=== PATIENT | female | born 1985 | race Caucasian/White ===

== ENCOUNTER 2022-01-21 23:42 | Emergency (ER) | payer MEDICAID ==
[~2022-01-21] VITALS: Ht 160 cm; Wt 70.0 kg
[2022-01-22] MEDS ORDERED: NITR-87 MT (01:00)
[2022-01-22] MEDS ORDERED: PYR200 MT (01:00)
[2022-01-22 01:46] LABS: CLARITY URINE CLEAR (CLEAR); COLOR URINE DARK YELLOW (YELLOW); KETONES URINE 1+ (NEGATIVE); LEUKOCYTE ESTERASE URINE NEGATIVE (NEGATIVE); NITRITE URINE NEGATIVE (NEGATIVE); OCCULT BLOOD URINE NEGATIVE (NEGATIVE); PH URINE 5.5 (4.5-8.0); PROTEIN URINE 1+ (NEGATIVE); SPECIFIC GRAVITY URINE 1.019 (1.005-1.030)
[2022-01-22 01:52] VITALS: BP 112/88
== END 2022-01-22 01:53 | disposition home or self-care (01) ==
LOC: ER 23:42
DX: R30.0 Dysuria (principal); Z88.2 Allergy status to sulfonamides
CPT/HCPCS: 81003; 81025; 99283

== ENCOUNTER 2022-01-22 04:29 | Emergency (ER) | payer MEDICAID ==
[~2022-01-22] VITALS: Ht 154.9 cm; Wt 73.2 kg
[~2022-01-22 04:29] MED LIST: NITR-87 MT; PYR200 MT
[2022-01-22 04:47] VITALS: BP 111/59
== END 2022-01-22 05:55 | disposition left against medical advice (07) ==
LOC: ER 04:29
DX: Z53.21 Procedure and treatment not carried out due to patient leaving prior to being seen by health care provider (principal)